=== PATIENT | female | born 1945 | race Two or more races ===

== ENCOUNTER 2019-12-15 19:37 | Inpatient (IN) | payer MEDICARE, MEDICAID ==
[~2019-12-15] VITALS: Ht 157.5 cm; Wt 39.5 kg
[2019-12-15] MEDS ORDERED: SODIUM CHLORIDE 0.9% 1,000 ML IV ONE (20:00)
[2019-12-15] MEDS ORDERED: ONDANSETRON HCL 4 MG/2 ML VIAL IV ONE (20:00)
[2019-12-15 20:21] LABS: Basophils # (auto) 0.1 10 ^3/uL (0-0.2); Eosinophils # (auto) 0.2 10 ^3/uL (0-0.8); Hemoglobin 8.8 g/dL (12.2-16.2)
[2019-12-15 20:23] LABS: Basophils % (auto) 0.5 % (0.0-2.0); Hematocrit 28.6 % (36.0-46.0); Lymphocytes % (auto) 5.5 % (10.0-50.0); Mean Corpuscular Hemoglobin 29.2 pg (28.0-32.0); Mean Corpuscular Hgb Conc. 30.7 g/dL (32.0-36.0); Mean Corpuscular Volume 95.4 fL (80.0-100.0); Monocytes # (auto) 0.8 10 ^3/uL (0-1.3); Monocytes % (auto) 4.5 % (0.0-12.0); Neutrophils # (auto) 16.7 10 ^3/uL (1.6-8.6); Neutrophils % (auto) 88.5 % (37.0-80.0); Platelet Count (auto) 344 10^3/uL (140-450); Red Blood Cells 2.99 10^6/uL (4.0-5.20); Red Cell Distribution Width 16.5 % (11.8-14.3); White Blood Cell 18.9 10^3/uL (4.4-10.8)
[2019-12-15 20:34] LABS: INR 1.13 (0.9-1.15); Partial Thromboplastin Time 27.3 sec (23.64-32.05)
[2019-12-15 20:37] LABS: Albumin 2.4 g/dL (3.4-5.0); Calcium 7.9 mg/dL (8.5-10.1); Magnesium 2.3 mg/dL (1.6-2.6); Potassium 4.8 mmol/L (3.5-5.1)
[2019-12-15 20:44] LABS: BUN/Creatinine Ratio 17.7; Bilirubin, Total 0.2 mg/dL (0.2-1.0); Total Protein 6.9 g/dL (6.4-8.2)
[2019-12-15 23:26] LABS: Urine Amorphous Crystal FEW /hpf (None Seen); Urine Bacteria FEW /hpf (None Seen); Urine Blood 1+ /uL (Negative); Urine Specific Gravity 1.014 (1.001-1.035); Urine WBC 127 /hpf (0 - 5); Urine WBC Clumps PRESENT /hpf (None Seen)
[2019-12-16] MEDS ORDERED: DEXTROSE (50%) 50ML SYRG IV PRN (03:00)
[2019-12-16] MEDS ORDERED: NITROGLYCERIN 0.4 MG SL TAB SL PRN (03:00)
[2019-12-16] MEDS ORDERED: TEMAZEPAM 15 MG CAP PO PRN (03:00)
[2019-12-16] MEDS ORDERED: MORPHINE SULF INJ 2 MG/ML SYRINGE 1ML IV PRN (03:00)
[2019-12-16] MEDS ORDERED: ACETAMINOPHEN 325 MG TAB PO PRN (03:00)
[2019-12-16] MEDS: cefTRIAXone 1GM/50ML D5W 50 ML IV SCH (04:45)
[2019-12-16 05:05] VITALS: BP 145/86
[2019-12-16] MEDS: InsuLIN REG 1unit/0.01ml Soln (100units/ml) SC SCH ×4 (05:35→22:00)
[2019-12-16] MEDS: ACCU-CHEK COMFORT CURVE STRIP VI SCH ×4 (05:36→22:15)
[2019-12-16 06:37] VITALS: BP 145/86
[2019-12-16] MEDS ORDERED: PROM25TA5 PO (07:38)
[2019-12-16] MEDS ORDERED: CYA100I PO (07:38)
[2019-12-16] MEDS ORDERED: OMEP20TA PO (07:38)
[2019-12-16] MEDS ORDERED: DIPH50CA31 OR (07:38)
[2019-12-16] MEDS ORDERED: LORA0.5T12 PO (07:38)
[2019-12-16] MEDS ORDERED: FERR1TAB36 PO (07:38)
[2019-12-16] MEDS ORDERED: LABETALOL HCL 5 MG/ML 4ML SYRINGE IV PRN (08:30)
[2019-12-16 09:23] VITALS: BP 162/68
[2019-12-16] MEDS: MEMANTINE HCL 5 MG TAB PO SCH (10:00)
[2019-12-16] MEDS ORDERED: ASPirin 81 mg TAB PO SCH (10:00)
[2019-12-16] MEDS ORDERED: METOPROLOL TARTRATE 25 MG TAB PO SCH (10:00)
[2019-12-16] MEDS: PANTOPRAZOLE 40 MG TAB PO SCH (10:00)
[2019-12-16] MEDS: amLODIPine BESYLATE 5 MG TAB PO SCH (10:00)
[2019-12-16] MEDS: METOPROLOL TARTRATE 25 MG TAB PO SCH ×3 (11:26→22:14)
[2019-12-16] MEDS: ONDANSETRON HCL 4 MG/2 ML VIAL IV PRN ×2 (12:42→18:59)
[2019-12-16 14:36] VITALS: BP 144/62
[2019-12-16] MEDS ORDERED: MET25T PO (16:22)
[2019-12-16] MEDS ORDERED: BRIM0.2S17 LEFTEYE (16:22)
[2019-12-16 16:33] VITALS: BP 161/69
[2019-12-16] MEDS: ASPirin 81 mg TAB PO SCH ×2 (19:15→22:12)
[2019-12-16] MEDS ORDERED: HALOPERIDOL LACTATE 5 MG/ML INJ VIAL IM PRN (19:15)
[2019-12-16 22:00] VITALS: BP 111/57
[2019-12-16] MEDS ORDERED: ATORVASTATIN 20 MG TAB PO SCH (22:00)
[2019-12-16] MEDS: ATORVASTATIN 20 MG TAB PO SCH ×2 (22:00→22:12)
[2019-12-17] MEDS: cefTRIAXone 1GM/50ML D5W 50 ML IV SCH (05:00)
[2019-12-17] MEDS: ACCU-CHEK COMFORT CURVE STRIP VI SCH ×2 (06:17→11:30)
[2019-12-17] MEDS: InsuLIN REG 1unit/0.01ml Soln (100units/ml) SC SCH ×2 (06:17→11:30)
[2019-12-17 09:00] VITALS: BP 98/58
[2019-12-17] MEDS: METOPROLOL TARTRATE 25 MG TAB PO SCH (10:00)
[2019-12-17] MEDS: ASPirin 81 mg TAB PO SCH (10:00)
[2019-12-17] MEDS: MEMANTINE HCL 5 MG TAB PO SCH (10:00)
[2019-12-17] MEDS: amLODIPine BESYLATE 5 MG TAB PO SCH (10:00)
[2019-12-17] MEDS: PANTOPRAZOLE 40 MG TAB PO SCH (10:00)
[2019-12-17] MEDS ORDERED: CLOPIDOGREL BISULFATE 75 MG TAB PO SCH (10:00)
[2019-12-17 13:00] VITALS: BP 107/62
[2019-12-17 13:36] VITALS: BP 107/62
== END 2019-12-17 15:10 | disposition home or self-care (01) | DRG 871 ==
LOC: EDBD 19:37 → ER 19:37 → TELE 19:38 → TELE-CENTR 12-16 04:57
PROVIDERS: ADMIT Nurse Practitioner; ATTEND Family Medicine
DX: A41.9 Sepsis, unspecified organism (principal); I21.4 Non-ST elevation (NSTEMI) myocardial infarction; G93.41 Metabolic encephalopathy; N39.0 Urinary tract infection, site not specified; N17.9 Acute kidney failure, unspecified; R64 Cachexia; N18.4 Chronic kidney disease, stage 4 (severe); I13.0 Hypertensive heart and chronic kidney disease with heart failure and stage 1 through stage 4 chronic kidney disease, or unspecified chronic kidney disease; Z68.1 Body mass index [BMI] 19.9 or less, adult; I50.9 Heart failure, unspecified; I73.9 Peripheral vascular disease, unspecified; F03.90 Unspecified dementia, unspecified severity, without behavioral disturbance, psychotic disturbance, mood disturbance, and anxiety; E11.22 Type 2 diabetes mellitus with diabetic chronic kidney disease; E11.51 Type 2 diabetes mellitus with diabetic peripheral angiopathy without gangrene; D63.8 Anemia in other chronic diseases classified elsewhere; E11.42 Type 2 diabetes mellitus with diabetic polyneuropathy; I25.2 Old myocardial infarction; Z79.899 Other long term (current) drug therapy; Z80.8 Family history of malignant neoplasm of other organs or systems; Z82.49 Family history of ischemic heart disease and other diseases of the circulatory system; J44.9 Chronic obstructive pulmonary disease, unspecified
CPT/HCPCS: 36415; 70450; 70551; 71045; 74176; 80053; 81001; 82150; 82962; 83605; 83690; 83735; 83880; 84484; 85025; 85610; 85730; 87040; 87077; 87086; 87088; 93306; G0378; J0696; J2405